=== PATIENT | male | born 1960 | race Hispanic/Latino ===

== ENCOUNTER 2019-03-30 16:03 | Inpatient (IN) | payer BC ==
[~2019-03-30] VITALS: Ht 167.6 cm; Wt 112.0 kg
[2019-03-30] MEDS ORDERED: CLINDAMYCIN PHOS 900MG/ 50ML 50 ML IV STA (16:22)
[2019-03-30] MEDS ORDERED: CLONIDINE HCL 0.1 MG TAB PO ONE (16:30)
--- NOTE | 2019-03-30 17:10 | Diagnostic Imaging Report ---
FOOT LEFT COMPLETE - 3 views HISTORY: Pain. Cellulitis. Foreign body. COMPARISON: None available. FINDINGS: Bones: No acute displaced fracture. Osseous alignment is within normal limits. Small plantar calcaneal enthesophyte. Joints: The joint spaces are well-maintained. Soft tissues: Soft tissue swelling of the plantar aspect of the hindfoot. No radiopaque foreign body. Vascular calcifications. IMPRESSION: Soft tissue swelling of the plantar aspect of the hindfoot. No radiopaque foreign body. Signed by: Dr. Shalonda Sims M.D. on 03/30/2019 5:08 PM
[2019-03-30 17:16] LABS: BASOPHILS # (AUTO) 0.1 (0.0-0.1); BASOPHILS % 0.6 % (0.0-1.0); EOSINOPHILS # (AUTO) 0.4 (0.0-0.4); EOSINOPHILS % 3.7 % (0.0-6.0); HEMATOCRIT 41.1 % (38.2-49.6); HEMOGLOBIN 14.7 g/dL (14.0-18.0); LYMPHOCYTES # (AUTO) 1.8 (1.0-3.2); LYMPHOCYTES % 15.3 % (18.0-39.1); MEAN CORPUSCULAR HEMOGLOBIN 31.1 pg (28-32); MEAN CORPUSCULAR HGB CONC 35.8 g/dL (31-35); MEAN CORPUSCULAR VOLUME 87.1 fL (81-99); MONOCYTES % 8.2 % (4.4-11.3); NEUTROPHILS # (AUTO) 8.4 (2.1-6.9); NEUTROPHILS % 71.6 % (38.7-80.0); PLATELET COUNT 330 x10e3/uL (140-360); RED BLOOD COUNT 4.72 x10e6/uL (4.3-5.7); RED CELL DISTRIBUTION WIDTH 11.5 % (11.7-14.4)
[2019-03-30 17:35] LABS: ALANINE AMINOTRANSFERASE 14 IU/L (0-55); ALBUMIN 3.8 g/dL (3.5-5.0); ALKALINE PHOSPHATASE 191 IU/L (40-150); ANION GAP 13.6 mmol/L (8-16); BLOOD UREA NITROGEN 11 mg/dL (7-26); BUN/CREATININE RATIO 11 (6-25); CALCIUM 9.4 mg/dL (8.4-10.2); CARBON DIOXIDE 26 mmol/L (22-29); CHLORIDE 98 mmol/L (98-107); CREATININE, SERUM 0.96 mg/dL (0.72-1.25); EST GLOMERULAR FILTRATION RATE > 60 ML/MIN (60-); GLUCOSE 310 mg/dL (74-118); POTASSIUM 3.6 mmol/L (3.5-5.1); SODIUM 134 mmol/L (136-145)
[2019-03-30] MEDS ORDERED: DEXTROSE 50% SYRINGE 50 ML IV PRN (18:30)
[2019-03-30] MEDS ORDERED: INSULIN REGULAR, HUMAN 100 UNIT/1 ML 3ML VIAL IV ONE (18:30)
--- OUTSIDE RECORDS SUMMARY | 2019-03-30 18:49 | XMS REPORT ---
[facility] Address Unknown Phone Unavailable Care Team Providers Care Advertiser Name Role Phone Kody BROWN Unavailable Unavailable Problems This patient has no known problems. Allergies, Adverse Reactions, Alerts This patient has no known allergies or adverse reactions. Medications This patient has no known medications. 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 Cellulitis. Foreign body. COMPARISON: None available. FINDINGS: Bones: No acute displaced fracture. Osseous alignment is within normal limits. Small plantar calcaneal enthesophyte. Joints: The joint spaces are well- maintained. Soft tissues: Soft tissue swelling of the plantar aspect of the hindfoot. No radiopaque foreign body. Vascular calcifications. IMPRESSION: Soft tissue swelling of the plantar aspect of the hindfoot. No radiopaque foreign body. Signed by: Dr. Shalonda Hilliard M.D. on 03/30/2019 5:08 PM Dictated By: MARGARET HILLIARD MD, MD 07 Transcribed By: LAVERN on 03/30/191707 COPY TO: SHAISTA HOOD NP
[2019-03-30] MEDS ORDERED: MORPHINE SULFATE INJ 4 MG/ML INJ 1ML IV PRN (21:15)
[2019-03-30] MEDS ORDERED: ONDANSETRON HCL INJ 2MG/ML 2ML 2 MG/ML VIAL IV PRN (21:15)
[2019-03-30] MEDS ORDERED: DIPHENHYDRAMINE HCL INJ 50 MG/ML VIAL IV PRN (21:15)
[2019-03-30] MEDS ORDERED: CLONIDINE HCL 0.1 MG TAB PO PRN (21:15)
[2019-03-30] MEDS ORDERED: ENALAPRILAT IV INJ 1.25 MG/ML VIAL IV PRN (21:15)
[2019-03-30] MEDS ORDERED: ACETAMINOPHEN 325 MG TAB PO PRN (21:15)
[2019-03-30] MEDS ORDERED: ZOLPIDEM TARTRATE 5 MG TAB PO PRN (21:15)
[2019-03-30] MEDS: MORPHINE SULFATE INJ 4 MG/ML INJ 1ML IV PRN (22:07)
[2019-03-30 22:08] VITALS: BP 150/78
[2019-03-30 22:14] VITALS: BP 150/78
[2019-03-30] MEDS: INSULIN REGULAR, HUMAN 100 UNIT/1 ML 3ML VIAL SQ SCH (22:23)
--- NOTE | 2019-03-30 22:30 | NUR ---
patient came from ER awake alert oriented, noted left foot swelling and red. pt complained of pain to the area to touch. small discharge noted and open to air. also noted dryness to right ankle, per pt its been there for a long time and it comes and go. pain med PRN given, will continue to monitor.
[2019-03-31] VITALS (10 sets, daily range): BP systolic 132–159; BP diastolic 59–84
[2019-03-31] MEDS: HYDROCODONE/APAP 7.5MG-325MG 1 EA TAB PO PRN ×2 (00:09→15:18)
[2019-03-31] MEDS: CLINDAMYCIN PHOS 900MG/ 50ML 50 ML IV SCH ×5 (00:17→23:25)
[2019-03-31] MEDS: MORPHINE SULFATE INJ 4 MG/ML INJ 1ML IV PRN (02:51)
[2019-03-31] MEDS: IBUPROFEN 200 MG TAB PO PRN ×2 (05:34→20:25)
[2019-03-31 06:31] LABS: CHOL/HDL RATIO 4.5 (3.9-4.7)
--- NOTE | 2019-03-31 06:55 | NUR ---
H&P cc: foot infection HPI; 59yoM, PCP none, developed infection of foot left- heel. Pt states no injury. Quit diabetic meds about 5 yrs ago. 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
[2019-03-31] MEDS ORDERED: ACETAMINOPHEN 325 MG TAB PO PRN (07:00)
[2019-03-31] MEDS ORDERED: SENNOSIDES 8.6 MG TAB PO PRN (07:00)
[2019-03-31] MEDS: INSULIN REGULAR, HUMAN 100 UNIT/1 ML 3ML VIAL SQ SCH ×4 (07:30→20:26)
[2019-03-31] MEDS: FAMOTIDINE 20 MG TAB PO SCH ×2 (07:54→16:46)
[2019-03-31] MEDS: VANCOMYCIN 1GM/NS 250 ML 250 ML IV SCH (07:54)
[2019-03-31] MEDS ORDERED: FAMOTIDINE 20 MG/2 ML VIAL IV SCH (09:00)
[2019-03-31] MEDS: INSULIN GLARGINE 100 UNITS/ML VIAL SQ SCH (09:00)
[2019-03-31] MEDS: PIPER-TAZ 3.375 GM 50 ML IV SCH ×3 (09:15→20:25)
--- NOTE | 2019-03-31 09:30 | NUR ---
Nutrition Screen Note RD Recommendation for Physician: -Continue current diet per MD. Plan of Care: RD following, monitoring for tolerance and adequacy. Education provided Nutrition reason for involvement: MD consult-obesity and DM Primary Diagnose(s): cellulitis of left foot, DM PMH: DM2, HTN, HLD Ht: 66 in Wt: 256 lb BMI: 41.3 kg/m2 IBW:[address] Assessment: (03/31): 59 YOM admitted for cellulitis with PMH listed above. The pt was seen resting in bed with his at his bedside. The pt denied poor appetite, N/V/C/D/chewing or swallowing issues as well as any food allergies. Pt and were educated on the DM diet and weight management tips and given educational handout. They had no other questions or concerns. Chart reviewed. Labs and meds reviewed. A1c-10.6, POC GM: 211. Will continue to monitor. Current Diet: 1800 ADA diet Malnutrition Evaluation 03/31 The patient does not meet criteria for a specified degree of malnutrition at this time. Will re-evaluate at follow-up as appropriate. Diet Education Needs Assessment: Diet education indicated, pt accepted. Diet Adequacy: (Meeting calorie needs, Meeting protein needs Learner(s): pt and Barriers: none Cultural/Language Modifications:none Readiness: acceptance Method: discussion, handout Topics: DM Diet- food label, meal planning, food logging, foods recommended and not recommended, carb and protein together, hyperglycemia tips, checking sugars, grocery shopping, healthy cooking tips, etc. Understanding/Compliance: verbalized understanding, anticipate good compliance Nutrition Care Level: low Signed: Jazzmine Mcintosh RD, LD
--- NOTE | 2019-03-31 10:16 | NUR ---
Consult called to Dr. Silverman
[2019-03-31] MEDS: ENOXAPARIN SOD INJ 40 MG/0.4 ML SYR SC SCH (16:47)
--- NOTE | 2019-03-31 18:33 | Consultation ---
DATE OF CONSULTATION: 03/31/2019 REASON FOR CONSULTATION: Consulted for left foot abscess. HISTORY OF PRESENT ILLNESS: This is a 59-year-old male, who presented to the ER for worsening swelling, pain, and drainage from his left foot. On admission, he denies any medical history, however, he does admit to pain and drainage from the left foot. He denies any nausea, fever, chills, or any constitutional symptoms. He states he does not seek a primary care doctor and has never been diagnosed with diabetes in the past. PAST MEDICAL HISTORY: As stated above. PAST SURGICAL HISTORY: Noncontributory. SOCIAL HISTORY: The patient denies any illicit drug abuse, alcohol abuse, or any tobacco abuse at this point. ALLERGIES: NO KNOWN DRUG ALLERGIES. MEDICATIONS: None. PHYSICAL EXAMINATION: VITAL SIGNS: Reviewed. Labs were reviewed, radiographs are reviewed, which are negative for any underlying soft tissue emphysema or cortical erosions consistent with osteomyelitis. GENERAL: The patient was seen lying in bed, in no acute distress. HEAD: Normocephalic. CHEST: Denies any chest pain. LUNGS: Denies any shortness of breath. ABDOMEN: Soft, nontender. EXTREMITIES: Left lower extremity, there is a full-thickness ulceration noted in the plantar aspect of the left foot. There is a palpable abscess noted to the plantar aspect of the left heel. Serosanguinous and pustular drainage is noted. Proximal streaking at this point is absent, but there is periwound erythema and edema. No pain on palpation. There is significant fungal infection noted to the plantar aspect of the left foot. ASSESSMENT: 1. Uncontrolled diabetes mellitus with peripheral neuropathy. 2. Left foot cellulitis with abscess. 3. Tinea pedis. PLAN: From Podiatry standpoint, deep wound cultures will be taken at bedside today. The patient's left foot will be dressed in a narrative form, packing with Betadine, wet-to-dry dressing. MRI of the left foot will be ordered for surgical planning. The patient will require incision and drainage of the abscess, however, prior to surgery I will request a medical and cardiac clearance due to the fact that the patient has not been evaluated by a medical doctor recently. Podiatry will continue to follow. Thank you again for including in the care of this patient. I would like to thank Dr. Owens for the consultation. LUIS Purdy /[id number]
[2019-03-31] MEDS: ATORVASTATIN 40 MG TAB PO SCH (20:25)
[2019-03-31] MEDS ORDERED: ZOLPIDEM TARTRATE 5 MG TAB PO PRN (21:00)
[2019-04-01] VITALS (11 sets, daily range): BP systolic 129–158; BP diastolic 71–98
[2019-04-01] MEDS: PIPER-TAZ 3.375 GM 50 ML IV SCH ×4 (01:13→20:22)
[2019-04-01] MEDS: CLINDAMYCIN PHOS 900MG/ 50ML 50 ML IV SCH ×3 (04:38→17:20)
--- NOTE | 2019-04-01 06:41 | NUR ---
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
[2019-04-01 07:05] LABS: BASOPHILS # (AUTO) 0.1 (0.0-0.1); BASOPHILS % 0.7 % (0.0-1.0); EOSINOPHILS # (AUTO) 0.7 (0.0-0.4); EOSINOPHILS % 6.5 % (0.0-6.0); HEMATOCRIT 39.4 % (38.2-49.6); HEMOGLOBIN 13.8 g/dL (14.0-18.0); LYMPHOCYTES # (AUTO) 1.9 (1.0-3.2); LYMPHOCYTES % 18.7 % (18.0-39.1); MEAN CORPUSCULAR HEMOGLOBIN 30.9 pg (28-32); MEAN CORPUSCULAR VOLUME 88.1 fL (81-99); MONOCYTES % 9.7 % (4.4-11.3); NEUTROPHILS # (AUTO) 6.4 (2.1-6.9); NEUTROPHILS % 63.8 % (38.7-80.0); PLATELET COUNT 301 x10e3/uL (140-360); RED BLOOD COUNT 4.47 x10e6/uL (4.3-5.7); RED CELL DISTRIBUTION WIDTH 11.5 % (11.7-14.4)
[2019-04-01 07:23] LABS: ANION GAP 12.3 mmol/L (8-16); BLOOD UREA NITROGEN 12 mg/dL (7-26); BUN/CREATININE RATIO 16 (6-25); CALCIUM 9.1 mg/dL (8.4-10.2); CARBON DIOXIDE 27 mmol/L (22-29); CHLORIDE 99 mmol/L (98-107); CREATININE, SERUM 0.74 mg/dL (0.72-1.25); EST GLOMERULAR FILTRATION RATE > 60 ML/MIN (60-); GLUCOSE 217 mg/dL (74-118); POTASSIUM 4.3 mmol/L (3.5-5.1); SODIUM 134 mmol/L (136-145)
[2019-04-01] MEDS: INSULIN REGULAR, HUMAN 100 UNIT/1 ML 3ML VIAL SQ SCH ×4 (08:17→20:26)
[2019-04-01] MEDS: FAMOTIDINE 20 MG TAB PO SCH ×2 (08:19→16:43)
[2019-04-01] MEDS: VANCOMYCIN 1GM/NS 250 ML 250 ML IV SCH (08:19)
[2019-04-01] MEDS: INSULIN GLARGINE 100 UNITS/ML VIAL SQ SCH (08:20)
--- NOTE | 2019-04-01 08:35 | Diagnostic Imaging Report ---
MRI of the left foot without contrast. History: Cellulitis. Foot pain. Decreased range of motion. Heel pain Technique: Multiplanar multisequence MRI of the foot without contrast Comparison: March 30, 2019 Findings: Skin thickening with ulceration and abnormal soft tissue edema at the plantar aspect of the foot at the level of the mid calcaneus. No well-formed drainable fluid collection/abscess is seen. The findings are most consistent with cellulitis. The underlying bone is uninvolved. No acute fracture, dislocation or evidence of avascular necrosis. Scattered degenerative arthrosis. Posterior and inferior calcaneal bone spurs. No ligamentous or tendon tear. The visualized muscles are normal in size and morphology. The visualized neurovascular bundles are intact. Impression: Skin thickening with ulceration and abnormal soft tissue edema at the plantar aspect of the foot at the level of the mid calcaneus. No well-formed drainable fluid collection/abscess is seen. The findings are most consistent with cellulitis. The underlying bone is uninvolved. Signed by: Dr. Edson Cole M.D. on 04/01/2019 8:32 AM
[2019-04-01] MEDS ORDERED: ONDANSETRON HCL 4 MG ORAL DISINTEGRATING TAB PO PRN (11:30)
--- NOTE | 2019-04-01 13:10 | NUR ---
Visit made by the Spiritual Care Department Pastoral Visitor, Rosalia Norris. PV provided pastoral presence, prayer, hospitality, and supportive listening. Pastoral Visitor informed pt/family of the scope of [employer] and availability. JUAN PAREDES Electronic Equipment Installer Spiritual Care Department O: [phone] Pager: [phone] ([phone] number calling from)
--- NOTE | 2019-04-01 13:48 | Progress Note ---
DATE: 04/01/2019 SUBJECTIVE: The patient was seen at bedside today, in no acute distress. Dressings are clean, dry, and intact to the left foot. He denies any overnight constitutional symptoms. MRI was reviewed, which is consistent for an abscess collection at the plantar aspect of the left heel, however, there is no underlying osteomyelitis. ASSESSMENT: 1. Abscess of left foot. 2. Uncontrolled diabetes mellitus with peripheral neuropathy. 3. Left foot cellulitis. PLAN: From Podiatry standpoint, we will plan for surgery on consisting of an incision and drainage of abscess of the left foot. I am awaiting medical and cardiac clearance for the patient prior to surgery. At this point, Podiatry will continue to follow. Thank you again for including me in the care of this patient. Kerline Silverman DPM [facility] /[id number]
--- NOTE | 2019-04-01 14:30 | NUR ---
WOUND CARE CONSULT FOR 59 YO MALE HX OF DIABETIES, CELLULITIS FERNY 22 PATIENT ON CONSERVATIVE PUP STATUS AND INTERVENTIONS AND VISCO MATTRESS LABS: WBC-11.77 HGB_ 14.7 GLUCOSE-310 VQGA6F-30.6 SKIN ASSESSMENT COMPLETE PATIENT PRESENTS WITH LEFT FOOT PLANTAR SURFACE HEEL ULCERATION COVERED WITH CALLUS DRAINING BROWNISH EXUDATE WITH SLIGHT SMELL CULTURES DONE PATIENT ON ANTIBIOTICS AND PLANNED DEBRIDEMENT FOR Sunday04/02/2019 RECOMMENDATIONS: NURSING TO CONTINUE TO MAINTAIN CONSERVATIVE PUP STATUS AND INTERVENTIONS AND VISCO MATTRESS NURSING TO CONTINUE TO ASSIST PATIENT OUT OF BED FOR MEALS AND MUCH TOLERATED NURSING TO CONTINUE TO ASSIST PATIENT NEEDED WITH MEALS AND NUTRITIONAL SUPPLEMENTS TO ENSURE PROPER REQUIREMENTS FOR HEALING NURSING TO CONTINUE TO OFFLOAD FEET AND HEELS NEEDED WITH PILLOW SUSPENSION WHEN IN BED NURSING TO CLEAN LEFT HEEL ULCERATION WITH NORMAL SALINE DAILY AND APPLY BETADINE DAMP 4X4 AND WRAP WITH KERLIX [place] Addendum: 04/01/19 at 1440 by Dominic Casey RN Amended: Links added.
[2019-04-01] MEDS: HYDROCODONE/APAP 7.5MG-325MG 1 EA TAB PO PRN ×2 (15:06→22:00)
--- NOTE | 2019-04-01 16:29 | NUR ---
DR GARCIA PLANNING ON I/D OF LEFT FOOT SUNDAY. WANTS CARDIO CLEARANCE. PER DR SAENZ, OK FOR PROCEDURE. ORDERED DOPPLER OF FOOT FOR POSSIBLE FUTURE ANGIOGRAM. PT STABLE
[2019-04-01] MEDS: ENOXAPARIN SOD INJ 40 MG/0.4 ML SYR SC SCH (16:43)
[2019-04-01] MEDS: MORPHINE SULFATE INJ 4 MG/ML INJ 1ML IV PRN (19:57)
[2019-04-01] MEDS: ATORVASTATIN 40 MG TAB PO SCH (20:22)
[2019-04-02] VITALS (8 sets, daily range): BP systolic 120–124; BP diastolic 67–89
--- NOTE | 2019-04-02 00:29 | Consultation ---
DATE OF CONSULTATION: 04/01/2019 Cardiology Consult Note REASON FOR CONSULT: Left lower extremity ulcer and wound. CHIEF COMPLAINT: Left heel pain. HISTORY OF PRESENT ILLNESS: A 59-year-old man with history of hypertension, hyperlipidemia, prior smoker, quit about nine years ago, diabetes, who had nonhealing diabetic ulcer of the left heel, admitted for I and D . No prior history of PAD or intervention. No history of sudden cardiovascular disease otherwise . No strokes. Currently, denies any shortness of breath or chest pain. No complaints of left heel ulcer. REVIEW OF SYSTEMS: As per HPI, otherwise negative. PAST MEDICAL HISTORY: As per HPI. SOCIAL HISTORY: Does not smoke, drink, or abuse drugs. FAMILY HISTORY: Noncontributory. OUTPATIENT MEDICATIONS: Reviewed. ALLERGIES: NO KNOWN DRUG ALLERGIES. OBJECTIVE: VITAL SIGNS: Temperature afebrile, pulse 73, respiratory rate 20, blood pressure 129/87, saturating 97% on room air. GENERAL: Middle-aged male in no acute distress. CARDIOVASCULAR: Regular rate and rhythm. No murmurs, rubs, or gallops. LUNGS: Clear to auscultation bilaterally. ABDOMEN: Soft, nontender, nondistended. NEURO AND PSYCH: Alert and oriented to person, place, and time. Normal affect. EXTREMITIES: Left lower extremities with heel dressing in place. Palpable dorsalis pedis pulse. Bilateral lower extremities. Posterior tibial pulses not palpable on the left. INPATIENT MEDICATIONS: Reviewed. LABORATORY DATA: Reviewed. ASSESSMENT: 1. Nonhealing left heel diabetic foot ulcer. 2. Preoperative evaluation. PLAN: The patient is low risk for podiatry surgery, plan for from cardiovascular standpoint, no further testing required. . Thank you for this consult. We will continue to follow. MD ALONSO Del Rio/SANDIPL /[id number]
[2019-04-02] MEDS: MORPHINE SULFATE INJ 4 MG/ML INJ 1ML IV PRN ×2 (02:00→15:31)
[2019-04-02] MEDS: PIPER-TAZ 3.375 GM 50 ML IV SCH ×2 (03:15→20:24)
[2019-04-02] MEDS: CLINDAMYCIN PHOS 900MG/ 50ML 50 ML IV SCH ×3 (05:29→13:26)
[2019-04-02] MEDS: HYDROCODONE/APAP 7.5MG-325MG 1 EA TAB PO PRN ×2 (06:00→17:59)
--- NOTE | 2019-04-02 07:25 | NUR ---
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 sx pending. Staph infection of foot. vanco trough. Paolo Martin MD, PhD.
[2019-04-02] MEDS: FAMOTIDINE 20 MG TAB PO SCH ×2 (07:41→17:47)
[2019-04-02] MEDS: INSULIN REGULAR, HUMAN 100 UNIT/1 ML 3ML VIAL SQ SCH ×4 (07:42→20:25)
[2019-04-02] MEDS: VANCOMYCIN 1GM/NS 250 ML 250 ML IV SCH (09:34)
[2019-04-02] MEDS: INSULIN GLARGINE 100 UNITS/ML VIAL SQ SCH (09:35)
[2019-04-02] MEDS: IBUPROFEN 200 MG TAB PO PRN ×2 (10:27→21:47)
[2019-04-02] MEDS ORDERED: PIPER-TAZ 3.375 GM 50 ML IV SCH (12:00)
[2019-04-02] MEDS ORDERED: SODIUM CHLORIDE 0.9% 250ML 250 ML ONE (12:03)
[2019-04-02] MEDS: ENOXAPARIN SOD INJ 40 MG/0.4 ML SYR SC SCH (17:47)
[2019-04-02] MEDS: ATORVASTATIN 40 MG TAB PO SCH (20:24)
[2019-04-02] MEDS: VANCOMYCIN HCL 1.25 GM in SODIUM CHLORIDE 0.9% 250ML 250 ML IV SCH (21:36)
--- NOTE | 2019-04-02 21:58 | Consultation ---
DATE OF CONSULTATION: 04/02/2019 Infectious Disease Consultation I would like to thank Dr. Paolo Owens for this interesting consult. HISTORY OF PRESENT ILLNESS: This is a 59-year-old, very pleasant male with no significant past medical history. The patient has a wound on the left heel area. 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 In the ER, he was found to have elevated blood glucose and he was diagnosed with diabetes. The sensations in the feet are questionable. The patient does not smoke and does not drink alcohol. For the concerns of diabetic foot infection, our service was asked to evaluate it and give further recommendations. PAST MEDICAL HISTORY: Newly onset of diabetes mellitus, obesity. PAST SURGICAL HISTORY: Not significant. MEDICATIONS: Reviewed. ALLERGIES: NO KNOWN DRUG ALLERGIES. FAMILY HISTORY: Noncontributory. 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 He does not smoke. Denies alcohol. No history of sexually transmitted disease. Lives at home with family. REVIEW OF SYSTEMS: A 14-point review of systems were obtained and all were negative except what was mentioned in the HPI. PHYSICAL EXAMINATION: VITAL SIGNS: Temperature 98.2, respiratory rate is 18, heart rate 68, blood pressure 184/85. GENERAL: Awake and alert. HEENT: Atraumatic, normocephalic. Chest: Clear to auscultation bilaterally. HEART: S1 and S2 are normal. ABDOMEN: Soft, nontender. EXTREMITIES: Left foot area has heel open wound with purulent drainage, periwound erythema, and tender to palpation of the heel. LABORATORY DATA: WBC 10.01, hemoglobin 13.8, hematocrit 39.4, platelet count is 301. Chemistry, 229. Microbiology, wound culture shows Staphylococcus aureus, susceptibility pending. IMAGING DATA: X-ray of the foot shows soft tissue swelling of the plantar aspect of the hindfoot. No radiopaque foreign body. MRI of the foot shows skin thickening with ulceration and has normal soft tissue edema and the plantar aspect of the foot at the level of mid calcaneus. No well formed drainable fluid collection or abscess is seen. The findings are more consistent with cellulitis. The underlying bone is uninvolved. ASSESSMENT: 1. This is a 59-year-old, very pleasant male with past medical history of newly onset diabetes mellitus, presents with diabetic foot infection, cellulitis, infected wound due to Staphylococcus aureus. 2. Concerns for abscess. 3. No osteomyelitis per MRI. PLAN: 1. We will check blood cultures x2. 2. We will follow wound cultures. 3. The patient is planned for incision and drainage per Podiatry tomorrow. We will follow intraoperative cultures. 4. We will use Zosyn 3.375 q. 8 hours. 5. Continue with vancomycin 1250 mg q. 12 hours. 6. Vancomycin trough will be checked with third dose. 7. Vancomycin trough will be maintained between 15 to 20. 8. CMP daily to monitor renal function. 9. Further recommendations to follow. Thank you for letting me to participate in the care of your patient. MD PARIS Molina/SANDIPL /[id number]
--- NOTE | 2019-04-02 22:07 | Progress Note ---
DATE: 04/02/2019 Cardiology Progress Note SUBJECTIVE: No major events overnight, having some heel pain. OBJECTIVE: VITAL SIGNS: Temperature afebrile, pulse 66, respiratory rate 20, blood pressure 121/72, saturating 98% on nasal cannula. GENERAL: A well-developed, well-nourished, in no acute distress. CARDIOVASCULAR: Regular rate and rhythm. No murmurs, rubs, or gallops. LUNGS: Clear to auscultation bilaterally. ABDOMEN: Soft, nontender, nondistended. NEURO AND PSYCH: Alert and oriented to person, place, and time. Normal affect. INPATIENT MEDICATIONS: Reviewed. LABORATORY DATA: Reviewed. TELEMETRY DATA: Reviewed, shows normal sinus rhythm. Peripheral arterial Doppler reviewed has severe stenosis in the left posterior tibial artery. ASSESSMENT AND PLAN: 1. Nonhealing left heel ulcer. 2. Peripheral arterial disease. PLAN: The patient will undergo I and D by Podiatry tomorrow, has severe stenosis of his left posterior tibial artery. His wound healing will benefit from peripheral intervention at an increased blood supply to the aneurysm of left heel. We will plan for peripheral angiography and intervention likely Sunday. Thank you for this consult. We will continue to follow. MD ALONSO Del Rio/LEA /[id number]
--- NOTE | 2019-04-02 22:20 | NUR ---
patient awake alert, just had Motrin PRN for the the left foot. he had some snacks just now, tolerated well. IV antibiotic is running at this time, and daughter on bed side. he is aware that he will be fasting after midnight and will sign consent for the procedure in the morning. will continue to monitor.
[2019-04-03] VITALS (11 sets, daily range): BP systolic 98–145; BP diastolic 57–85
[2019-04-03] MEDS: MORPHINE SULFATE INJ 4 MG/ML INJ 1ML IV PRN ×3 (04:18→22:01)
[2019-04-03] MEDS: PIPER-TAZ 3.375 GM 50 ML IV SCH ×3 (04:18→20:11)
[2019-04-03 05:30] LABS: BASOPHILS # (AUTO) 0.1 (0.0-0.1); BASOPHILS % 0.8 % (0.0-1.0); EOSINOPHILS # (AUTO) 0.7 (0.0-0.4); EOSINOPHILS % 8.1 % (0.0-6.0); HEMATOCRIT 39.5 % (38.2-49.6); HEMOGLOBIN 13.5 g/dL (14.0-18.0); LYMPHOCYTES # (AUTO) 1.8 (1.0-3.2); LYMPHOCYTES % 20.5 % (18.0-39.1); MEAN CORPUSCULAR HEMOGLOBIN 30.4 pg (28-32); MEAN CORPUSCULAR HGB CONC 34.2 g/dL (31-35); MONOCYTES # (AUTO) 0.7 (0.2-0.8); MONOCYTES % 7.7 % (4.4-11.3); NEUTROPHILS # (AUTO) 5.6 (2.1-6.9); NEUTROPHILS % 62.5 % (38.7-80.0); PLATELET COUNT 310 x10e3/uL (140-360); RED BLOOD COUNT 4.44 x10e6/uL (4.3-5.7); RED CELL DISTRIBUTION WIDTH 11.3 % (11.7-14.4)
[2019-04-03 05:45] LABS: INR 0.99; PROTHROMBIN TIME 13.7 seconds (11.9-14.5)
[2019-04-03 05:46] LABS: PARTIAL THROMBOPLASTIN TIME 31.6 seconds (23.8-35.5)
[2019-04-03 05:54] LABS: ANION GAP 11.1 mmol/L (8-16); BLOOD UREA NITROGEN 15 mg/dL (7-26); BUN/CREATININE RATIO 22 (6-25); CARBON DIOXIDE 27 mmol/L (22-29); CHLORIDE 100 mmol/L (98-107); CREATININE, SERUM 0.69 mg/dL (0.72-1.25); EST GLOMERULAR FILTRATION RATE > 60 ML/MIN (60-); GLUCOSE 168 mg/dL (74-118); POTASSIUM 4.1 mmol/L (3.5-5.1); SODIUM 134 mmol/L (136-145)
--- NOTE | 2019-04-03 06:48 | NUR ---
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 sx pending. Staph infection of foot. vanco trough. 04/03 sx pending; Paolo Martin MD, PhD.
[2019-04-03] MEDS: INSULIN REGULAR, HUMAN 100 UNIT/1 ML 3ML VIAL SQ SCH ×4 (07:30→20:11)
[2019-04-03] MEDS: FAMOTIDINE 20 MG TAB PO SCH ×2 (07:30→16:29)
[2019-04-03] MEDS: VANCOMYCIN HCL 1.25 GM in SODIUM CHLORIDE 0.9% 250ML 250 ML IV SCH ×2 (09:46→21:56)
--- NOTE | 2019-04-03 12:30 | NUR ---
Patient went to OR at this time
--- NOTE | 2019-04-03 12:45 | NUR ---
Patient going to OR will send Zosyn dose to OR.
[2019-04-03] MEDS ORDERED: BACITRACIN 50,000 UNIT VIAL ONE (12:55)
[2019-04-03] MEDS ORDERED: BUPIVACAINE HCL 0.5% INJ 30 ML VIAL INJ ONE (12:55)
[2019-04-03] MEDS ORDERED: MUPIROCIN 2% OINT 22 GM TUBE ONE (12:55)
[2019-04-03] MEDS ORDERED: HYDROMORPHONE 1MG/1ML INJ ONE (14:13)
[2019-04-03] MEDS ORDERED: MIDAZOLAM HCL 2 MG/2 ML VIAL ONE (14:25)
[2019-04-03] MEDS ORDERED: FENTANYL CITRATE/PF 100MCG/2 ML INJ ONE (14:25)
--- NOTE | 2019-04-03 15:00 | NUR ---
Received patient from the PACU patient is awake, alert and oriented x4, verbalizing needs, he is s/p incision and drainage to the left heel with bone biopsy, cultures of wound. has dressing to left heel, covered and wrapped with MONICA bandage no drainage note. Bed in low position break on placed back on telemetry. Belongings and call light within reach will continue to monitor.
--- NOTE | 2019-04-03 16:16 | Diagnostic Imaging Report ---
Exam: Left heel 2 views Comparison: Left foot MR, March 31, 2019 Clinical history: Status post surgery Findings: Dressing material is noted at the plantar aspect of the left posterior foot. There is no evidence of acute fracture or malalignment. No radiographic evidence of osteomyelitis. Signed by: Dr. Miguel Banks MD on 04/03/2019 4:13 PM
--- NOTE | 2019-04-03 16:17 | Diagnostic Imaging Report ---
Exam: Left foot 2 views Clinical History: Status post surgery Findings: There is no evidence of acute fracture or malalignment. The articular joints are well-preserved. Soft tissue defect is noted at the plantar surface of the posterior foot. Dressing material is also noted in the posterior lateral foot consistent with recent surgery. There is no evidence of acute fracture or malalignment. The articular joints are within normal limits. Impression: 1. Postoperative changes involving the left posterior foot without radiographic evidence of bony involvement. Signed by: Dr. Miguel Banks MD on 04/03/2019 4:15 PM
[2019-04-03] MEDS: INSULIN GLARGINE 100 UNITS/ML VIAL SQ SCH (16:29)
[2019-04-03] MEDS: ENOXAPARIN SOD INJ 40 MG/0.4 ML SYR SC SCH (18:10)
[2019-04-03] MEDS: HYDROCODONE/APAP 7.5MG-325MG 1 EA TAB PO PRN (18:22)
[2019-04-03] MEDS ORDERED: EPHEDRINE SULFATE INJ 50 MG/ML VIAL ONE (18:31)
[2019-04-03] MEDS ORDERED: PROPOFOL IV EMULSION 10 MG/ML 20 ML VIAL ONE (18:31)
[2019-04-03] MEDS ORDERED: ONDANSETRON HCL INJ 2MG/ML 2ML 2 MG/ML VIAL ONE (18:31)
[2019-04-03] MEDS ORDERED: LIDOCAINE HCL 2% LOCAL INJ 5 ML SDV VIAL INJ ONE (18:31)
[2019-04-03] MEDS ORDERED: SEVOFLURANE INHAL SOLN 250 ML PEN BTL ONE (18:31)
--- NOTE | 2019-04-03 19:55 | NUR ---
patient is awake alert oriented, no distress noted, denied any discomfort. left foot dressing intact. he is aware about peripheral angiography in the morning and stated that dr Francis came and talked to him today.
[2019-04-03] MEDS: ATORVASTATIN 40 MG TAB PO SCH (20:11)
--- NOTE | 2019-04-03 21:33 | Progress Note ---
DATE: 04/03/2019 Cardiology Progress Note SUBJECTIVE: Had I and D of left heel done today, doing well. No complaints. OBJECTIVE: VITAL SIGNS: Temperature afebrile, pulse 72, respiratory rate 15, blood pressure 127/75, saturating 100% on nasal cannula. GENERAL: Middle-aged man, well-developed, well-nourished, no acute distress. CARDIOVASCULAR: Regular rate and rhythm. No murmurs, rubs, or gallops. LUNGS: Clear to auscultation bilaterally. ABDOMEN: Soft, nontender, nondistended, obese. No masses. NEURO AND PSYCH: Alert and oriented to person, place and time. Normal affect. Left lower extremity dressing in place on the left heel, left posterior tibial pulses not palpable. No edema, no varicosities. INPATIENT MEDICATIONS: Reviewed. LABORATORY DATA: Reviewed. TELEMETRY DATA: The patient is not on telemetry. ASSESSMENT: 1. Peripheral arterial disease. 2. Left heel ulcer. PLAN: Plan for peripheral angiography and intervention tomorrow morning. Continue current cardiovascular medications otherwise. MD ALONSO Del Rio/SANDIPL /[id number]
[2019-04-03] MEDS: IBUPROFEN 200 MG TAB PO PRN (23:37)
[2019-04-04] VITALS (11 sets, daily range): BP systolic 134–165; BP diastolic 75–93
--- NOTE | 2019-04-04 02:49 | Operative Report ---
DATE OF PROCEDURE: 04/03/2019 SURGEON: Kerline Silverman DPM MILL OILER: None. PREOPERATIVE DIAGNOSES: 1. Left foot abscess. 2. Possible osteomyelitis, left foot. POSTOPERATIVE DIAGNOSES: 1. Left foot abscess. 2. Possible osteomyelitis, left foot. PROCEDURES: 1. Left foot incision and drainage of the abscess. 2. Bone biopsy, left calcaneus. HEMOSTASIS: None. INJECTABLES: 10 mL of 0.5% Marcaine plain. DESCRIPTION OF PROCEDURE: After informed consent was obtained, the patient was brought to the operating room and placed on the operating table in the supine position. General anesthesia was obtained. Left lower extremity was scrubbed, prepped, and draped in the usual aseptic manner. Attention was then directed to the plantar aspect of the left heel where the abscess was noted. At this time, utilizing sharp dissection technique, the abscess was drained. Approximately 10 mL of pustular drainage was expressed from the heel. At this time, it was noted that the ulceration site did extend to the bone. Therefore, an intraoperative decision to take a bone culture was made. Bone culture was sent to Pathology for culture and specimen. Next, the deep wound cultures were performed and sent to micro for aerobic, anaerobic, Gram staining and AFB. The wound was then thoroughly irrigated in a pulse lavage fashion utilizing 3 L of normal sterile saline with 20 mL of Betadine. Next, the left foot was anesthetized utilizing 10 mL of 0.5% Marcaine plain. The left foot was then placed in a sterile dressing consisting of Iodoform packing, 4 x 4's soaked in Betadine, 4 x 4's, Kerlix, Shyam wrap. The patient tolerated the procedure and anesthesia well. The patient was transferred back to the recovery room with vital signs stable and neurovascular status intact to preop status. Kerline Silverman DPM [facility]/MODL /[id number]
[2019-04-04] MEDS: MORPHINE SULFATE INJ 4 MG/ML INJ 1ML IV PRN ×3 (04:16→21:48)
[2019-04-04] MEDS: PIPER-TAZ 3.375 GM 50 ML IV SCH ×3 (04:16→20:43)
[2019-04-04] MEDS: INSULIN REGULAR, HUMAN 100 UNIT/1 ML 3ML VIAL SQ SCH ×4 (07:30→20:45)
[2019-04-04] MEDS: FAMOTIDINE 20 MG TAB PO SCH ×2 (07:30→17:23)
[2019-04-04] MEDS ORDERED: HEPARIN SOD (PORCINE) 1000 UNIT/ML 30ML ONE (08:36)
[2019-04-04] MEDS ORDERED: LIDOCAINE HCL 2% LOCAL 20 ML VIAL ONE (08:37)
[2019-04-04] MEDS ORDERED: FENTANYL CITRATE/PF 100MCG/2 ML INJ ONE ×2 (08:37→09:42)
[2019-04-04] MEDS ORDERED: MIDAZOLAM HCL 2 MG/2 ML VIAL ONE ×2 (08:37→09:27)
[2019-04-04] MEDS ORDERED: NITROGLYCERIN/D5W 200 MCG/ML 250 ML ONE (08:38)
[2019-04-04] MEDS ORDERED: SODIUM CHLORIDE 0.9% 1000ML 1,000 ML ONE ×2 (08:38→09:24)
[2019-04-04] MEDS ORDERED: IOPAMIDOL 300MG/ML 100 ML INFUS..BTL IV ONE (08:38)
[2019-04-04] MEDS ORDERED: HEPARIN SOD/SOD CHLORIDE 2,000 ML ONE (08:38)
[2019-04-04] MEDS ORDERED: VERAPAMIL HCL 2.5 MG/ML 2 ML VIAL ONE (09:23)
--- NOTE | 2019-04-04 09:52 | NUR ---
IM- progress note O/N see below ROS: no f/c/s/N/V/D/OG/cp/sob/back pain/confusion/focal limb weakness/vision changes v/s; revd PE tired appearing anicteric ns1s2 mod bs soft nt nd left foot plantar surface near heel with open wound, small, mild induration, surrounding erythema and warmth skin dry flat affect a&ox3; sanchez labs/med revd A/P: Left heel/foot abscess- IV vanco/clinda/wound care; XR negative DFU- IV abx; zosyn/vanco Staph infection of foot- cont IV vanco DM2- hab1c/lipids; start low dose lantus HTN- home meds HLD- use statin Severe obesity- supervisor cd area consult BMI 41.3 Prop; lovenox; pepcid dispo: consult podiatry 04-01 check labs; f/u MRI 04/02 MRI no OM. sx pending. Staph infection of foot. vanco trough. 04/03 sx pending; 04/04 MSSA infected DFU; Paolo Martin MD, PhD.
[2019-04-04] MEDS ORDERED: ASPIRIN 325 MG TAB ONE (09:57)
[2019-04-04] MEDS ORDERED: CLOPIDOGREL BISULFATE 75 MG TAB ONE (09:57)
[2019-04-04] MEDS: VANCOMYCIN HCL 1.25 GM in SODIUM CHLORIDE 0.9% 250ML 250 ML IV SCH ×2 (10:32→22:40)
[2019-04-04] MEDS: INSULIN GLARGINE 100 UNITS/ML VIAL SQ SCH (12:11)
[2019-04-04] MEDS: HYDROCODONE/APAP 7.5MG-325MG 1 EA TAB PO PRN ×2 (12:15→17:14)
--- NOTE | 2019-04-04 17:03 | Progress Note ---
DATE: 04/04/2019 SUBJECTIVE: The patient was seen at bedside today, in no acute distress. Dressings are clean, dry, and intact to the left foot. He underwent angiogram with Dr. Francis today. It was successful. Clinically, no changes since previous examination. ASSESSMENT: 1. Status post 1-day incision and drainage of left foot abscess with bone culture. 2. Osteomyelitis and cellulitis, left foot with abscess. 3. Diabetes mellitus with peripheral neuropathy. PLAN: From Podiatry standpoint, leave the dressing clean, dry, and intact to the left foot. From Podiatry standpoint, he is okay to be discharged if okay with Infectious Disease. He is to follow up with me in clinic within 1 week of discharge. At this point, Podiatry will sign off. Please reconsult if services are required. Thank you again for including me in the care of this patient. Kerline Silverman DPM [facility]/LEA /[id number]
[2019-04-04] MEDS: ENOXAPARIN SOD INJ 40 MG/0.4 ML SYR SC SCH (17:23)
[2019-04-04] MEDS: ATORVASTATIN 40 MG TAB PO SCH (20:43)
[2019-04-04] MEDS: IBUPROFEN 200 MG TAB PO PRN (20:52)
--- NOTE | 2019-04-04 23:19 | Progress Note ---
DATE: 04/04/2019 Cardiology Progress Note SUBJECTIVE: Had peripheral angiogram and intervention to the left posterior tibial artery. Doing well. OBJECTIVE: VITAL SIGNS: Temperature afebrile, pulse 72, respiratory rate 19, blood pressure 134/75, saturating 98% on room air. GENERAL: Middle-aged man, in no acute distress. CARDIOVASCULAR: Regular rate and rhythm. No murmurs, rubs, or gallops. LUNGS: Clear to auscultation bilaterally. ABDOMEN: Soft, nontender, nondistended. Obese. No masses. NEURO AND PSYCH: Alert, oriented to person, place, and time. Normal affect. INPATIENT MEDICATIONS: Reviewed. LABORATORY DATA: Reviewed. TELEMETRY DATA: The patient is on telemetry. ASSESSMENT: 1. Peripheral arterial disease, status post BILLPOSTER of the left posterior tibial artery. 2. Diabetic foot ulcer of left heel. PLAN: Continue aspirin and Plavix. The patient is okay to be discharged from cardiovascular standpoint with outpatient followup. MD ALONSO Del Rio/SANDIPL /[id number]
[2019-04-05] VITALS (9 sets, daily range): BP systolic 128–158; BP diastolic 74–84
[2019-04-05] MEDS: PIPER-TAZ 3.375 GM 50 ML IV SCH ×2 (04:34→11:53)
[2019-04-05] MEDS: HYDROCODONE/APAP 7.5MG-325MG 1 EA TAB PO PRN ×3 (04:41→21:53)
--- NOTE | 2019-04-05 05:44 | NUR ---
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 sx pending. Staph infection of foot. vanco trough. 04/03 sx pending; 04/04 MSSA infected DFU; 04/05 continue IV abx; continue LWC Paolo Martin MD, PhD.
[2019-04-05 05:49] LABS: BASOPHILS % 0.4 % (0.0-1.0); EOSINOPHILS # (AUTO) 0.5 (0.0-0.4); EOSINOPHILS % 5.2 % (0.0-6.0); HEMATOCRIT 37.9 % (38.2-49.6); LYMPHOCYTES # (AUTO) 1.9 (1.0-3.2); LYMPHOCYTES % 19.5 % (18.0-39.1); MEAN CORPUSCULAR HEMOGLOBIN 30.7 pg (28-32); MEAN CORPUSCULAR HGB CONC 34.3 g/dL (31-35); MEAN CORPUSCULAR VOLUME 89.4 fL (81-99); MONOCYTES # (AUTO) 0.9 (0.2-0.8); MONOCYTES % 9.3 % (4.4-11.3); NEUTROPHILS # (AUTO) 6.4 (2.1-6.9); PLATELET COUNT 294 x10e3/uL (140-360); RED BLOOD COUNT 4.24 x10e6/uL (4.3-5.7); RED CELL DISTRIBUTION WIDTH 11.3 % (11.7-14.4)
[2019-04-05 06:10] LABS: BLOOD UREA NITROGEN 10 mg/dL (7-26); BUN/CREATININE RATIO 15 (6-25); CALCIUM 8.9 mg/dL (8.4-10.2); CARBON DIOXIDE 28 mmol/L (22-29); CHLORIDE 102 mmol/L (98-107); CREATININE, SERUM 0.67 mg/dL (0.72-1.25); EST GLOMERULAR FILTRATION RATE > 60 ML/MIN (60-); GLUCOSE 134 mg/dL (74-118); SODIUM 136 mmol/L (136-145)
[2019-04-05] MEDS: INSULIN REGULAR, HUMAN 100 UNIT/1 ML 3ML VIAL SQ SCH ×4 (07:11→21:52)
[2019-04-05] MEDS: CLOPIDOGREL BISULFATE 75 MG TAB PO SCH (08:42)
[2019-04-05] MEDS: FAMOTIDINE 20 MG TAB PO SCH ×2 (08:42→17:47)
[2019-04-05] MEDS: ASPIRIN 81 MG ENTERIC COATED PO SCH (08:42)
[2019-04-05] MEDS: INSULIN GLARGINE 100 UNITS/ML VIAL SQ SCH (08:43)
[2019-04-05] MEDS: VANCOMYCIN HCL 1.25 GM in SODIUM CHLORIDE 0.9% 250ML 250 ML IV SCH (10:25)
[2019-04-05] MEDS: MORPHINE SULFATE INJ 4 MG/ML INJ 1ML IV PRN (13:47)
[2019-04-05] MEDS ORDERED: LISINOPRIL 10 MG TAB PO ONE (14:45)
[2019-04-05] MEDS ORDERED: LISINOPRIL 10 MG TAB PO NR (15:00)
[2019-04-05] MEDS ORDERED: ERTAPENEM 1GM/NS 100ML 100 ML IV SCH (16:30)
--- NOTE | 2019-04-05 17:32 | Progress Note ---
DATE: 04/05/2019 Cardiology Progress Note SUBJECTIVE: The patient denies chest pain or shortness of breath. OBJECTIVE: VITAL SIGNS: Temperature 97.7 degrees, pulse 71, respiratory rate 16, blood pressure 155/80, and oxygen saturation 96% on room air. GENERAL: Awake, alert, no acute distress. LUNGS: Clear to auscultation bilaterally. No wheezes or crackles. CARDIOVASCULAR: Normal rate regular rhythm. No murmur. Normal S1 and S2. ABDOMEN: Soft and nontender. EXTREMITIES: No edema. NEURO: Nonfocal exam. CARDIAC MEDICATIONS: Plavix 75 mg p.o. daily, aspirin 81 mg p.o. daily, atorvastatin 40 mg p.o. at bedtime, and enoxaparin 40 mg subcutaneous daily. LABORATORY DATA: WBC 9.91, hemoglobin 13, hematocrit 37.9, and platelets 294. Sodium 136, potassium 4, chloride 102, CO2 28, BUN 10, and creatinine 0.67. TELEMETRY: Personally reviewed and interpreted, revealing normal sinus rhythm. IMPRESSION: 1. Peripheral arterial disease, status post PLASTIC PRESS OPERATOR of the left posterior tibial artery. 2. Diabetic ulcer of the left heel. 3. Hypertension. 4. Hyperlipidemia. RECOMMENDATIONS: Continue dual anti-platelet therapy. The patient's blood pressure is not well controlled. Renal function is acceptable. Start lisinopril for blood pressure control. Continue current cardiac medications otherwise. Antibiotics per primary service. The patient is stable from a cardiac standpoint. No further cardiac evaluation is indicated at this time. Thank you for this consult. We will continue to follow. Mona Mireles MD [facility]/MODL /[id number]
[2019-04-05] MEDS: ENOXAPARIN SOD INJ 40 MG/0.4 ML SYR SC SCH (17:47)
[2019-04-05] MEDS: ATORVASTATIN 40 MG TAB PO SCH (21:52)
--- NOTE | 2019-04-05 22:55 | NUR ---
pt refused picc line at this time nurse lila robbins
[2019-04-06] VITALS (9 sets, daily range): BP systolic 115–160; BP diastolic 65–89
--- NOTE | 2019-04-06 07:10 | NUR ---
RECEIVED BEDSIDE SHIFT REPORT FROM NIGHT NURSE. PATIENT RESTING AT THIS TIME WITH NO VISIBLE SIGNS OF DISTRESS OR DISCOMFORT NOTED. CALL LIGHT WITHIN REACH.
--- NOTE | 2019-04-06 07:24 | NUR ---
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 sx pending. Staph infection of foot. vanco trough. 04/03 sx pending; 04/04 MSSA infected DFU; 04/05 continue IV abx; continue LWC 04/06 IV abx; d/c planning; Paolo Martin MD, PhD.
[2019-04-06] MEDS: INSULIN REGULAR, HUMAN 100 UNIT/1 ML 3ML VIAL SQ SCH ×4 (09:15→21:24)
[2019-04-06] MEDS: FAMOTIDINE 20 MG TAB PO SCH ×2 (09:37→18:41)
[2019-04-06] MEDS: ASPIRIN 81 MG ENTERIC COATED PO SCH (09:37)
[2019-04-06] MEDS: INSULIN GLARGINE 100 UNITS/ML VIAL SQ SCH (09:37)
[2019-04-06] MEDS: CLOPIDOGREL BISULFATE 75 MG TAB PO SCH (09:38)
[2019-04-06] MEDS: LISINOPRIL 10 MG TAB PO SCH (09:39)
--- NOTE | 2019-04-06 13:15 | NUR ---
CALLED DR. HOLLIDAY REGARDING PICC LINE PLACEMENT. PATIENT AGREES TO PLACEMENT. ORDERED FOR PICC LINE PLACEMENT. ORDER READ BACK AND VERIFIED.
[2019-04-06] MEDS: HYDROCODONE/APAP 7.5MG-325MG 1 EA TAB PO PRN (14:09)
[2019-04-06] MEDS: MEROPENEM 1GM 100 ML IV SCH ×2 (14:30→21:24)
[2019-04-06] MEDS ORDERED: SODIUM CHLORIDE 0.9% 50ML 50 ML ONE (14:35)
[2019-04-06] MEDS: MORPHINE SULFATE INJ 4 MG/ML INJ 1ML IV PRN (17:44)
[2019-04-06] MEDS: ENOXAPARIN SOD INJ 40 MG/0.4 ML SYR SC SCH (18:41)
--- NOTE | 2019-04-06 18:53 | Diagnostic Imaging Report ---
EXAMINATION: CHEST XRAY LINE PLACEMENT INDICATION: ^PICC line placement ^[id number] ^[id number] COMPARISON: None FINDINGS: AP view TUBES and LINES: There is a PICC line in place with distal tip in SVC. LUNGS: Lungs are well inflated. There is no evidence of pneumonia or pulmonary edema. PLEURA: No pleural effusion or pneumothorax. HEART AND MEDIASTINUM: The cardiomediastinal silhouette is unremarkable. BONES AND SOFT TISSUES: No acute osseous lesion. Soft tissues are unremarkable. UPPER ABDOMEN: No free air under the diaphragm. IMPRESSION: No acute thoracic abnormality. Signed by: Gian Monahan MD on 04/06/2019 6:51 PM
--- NOTE | 2019-04-06 19:10 | NUR ---
BEDSIDE REPORT GIVEN TO MEHREEN DAMIAN. PATIENT RESTING IN BED. PICC LINE TO RIGHT UPPER ARM IN PLACE. CALL LIGHT WITHIN REACH.
--- NOTE | 2019-04-06 19:37 | Progress Note ---
DATE: 04/06/2019 Cardiology Progress Note SUBJECTIVE: The patient denies chest pain or shortness of breath. OBJECTIVE: VITAL SIGNS: Temperature 98.1 degrees, pulse 61, respiratory rate 19, blood pressure 144/70, and oxygen saturation 96% on room air. GENERAL: Awake, alert, in no acute distress. LUNGS: Clear to auscultation bilaterally. No wheezes or crackles. CARDIOVASCULAR: Normal rate. Regular rhythm. No murmur. Normal S1 and S2. ABDOMEN: Soft and nontender. EXTREMITIES: No edema. NEURO: Nonfocal exam. CARDIAC MEDICATIONS: Lisinopril 10 mg p.o. daily, Plavix 75 mg p.o. daily, aspirin 81 mg p.o. daily, and atorvastatin 40 mg p.o. at bedtime. LABORATORY DATA: None today IMPRESSION: 1. Peripheral arterial disease, status post GRADER GREEN MEAT of the left posterior tibial artery. 2. Diabetic ulcer of the left heel. 3. Hypertension. 4. Hyperlipidemia. RECOMMENDATIONS: Continue dual anti-platelet therapy. The patient's blood pressure remains poorly controlled. If remains elevated over the next few days, increase lisinopril. Continue current cardiac medications otherwise. Antibiotics per primary service. The patient is stable from a cardiac standpoint. No further cardiac evaluation is indicated at this time. Thank you for this consult. We will continue to follow. Mona Mireles MD [facility]/MODL /[id number]
[2019-04-06] MEDS: ATORVASTATIN 40 MG TAB PO SCH (21:24)
[2019-04-06] MEDS ORDERED: SODIUM CHLORIDE 0.9% 250ML 250 ML ONE (22:05)
--- NOTE | 2019-04-06 22:28 | NUR ---
PATIENT RESTING IN BED WITH FAMILY AT BEDSIDE. EDUCATED PATIENT ON HOW TO ADMINISTER INSULIN SQ. PATIENT SUCCESSFULLY ADMINISTERED HIS BEDTIME SLIDING SCALE INSULIN.
[2019-04-07] VITALS: BP 158/83
[2019-04-07] MEDS ORDERED: MORPHINE SULFATE INJ 4 MG/ML INJ 1ML IV PRN
[2019-04-07 04:00] VITALS: BP 134/62
[2019-04-07] MEDS: HYDROCODONE/APAP 7.5MG-325MG 1 EA TAB PO PRN ×3 (04:08→16:41)
[2019-04-07] MEDS: MEROPENEM 1GM 100 ML IV SCH ×2 (06:00→15:57)
[2019-04-07] MEDS: INSULIN REGULAR, HUMAN 100 UNIT/1 ML 3ML VIAL SQ SCH ×3 (07:46→16:40)
[2019-04-07 07:49] VITALS: BP 131/74
[2019-04-07 08:57] VITALS: BP 131/74
[2019-04-07] MEDS: CLOPIDOGREL BISULFATE 75 MG TAB PO SCH (09:23)
[2019-04-07] MEDS: LISINOPRIL 10 MG TAB PO SCH (09:23)
[2019-04-07] MEDS: ASPIRIN 81 MG ENTERIC COATED PO SCH (09:24)
[2019-04-07] MEDS: FAMOTIDINE 20 MG TAB PO SCH ×2 (09:24→16:40)
[2019-04-07] MEDS: INSULIN GLARGINE 100 UNITS/ML VIAL SQ SCH (09:24)
[2019-04-07 11:18] VITALS: BP 136/71
[2019-04-07] MEDS ORDERED: PLAVIX75 MG PO (12:07)
[2019-04-07] MEDS ORDERED: ASPIRIN EC81 MG PO (12:07)
[2019-04-07] MEDS ORDERED: FAMOTIDINE20 MG PO (12:07)
[2019-04-07] MEDS ORDERED: Atorvastatin PO (12:07)
[2019-04-07] MEDS ORDERED: LISINOPRIL10 MG PO (12:07)
[2019-04-07] MEDS ORDERED: ACETAMINOPHEN325 M1 PO (12:07)
--- NOTE | 2019-04-07 12:09 | NUR ---
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 sx pending. Staph infection of foot. vanco trough. 04/03 sx pending; 04/04 MSSA infected DFU; 04/05 continue IV abx; continue LWC 04/06 IV abx; d/c planning; 04/07 d/c home with Abx of ID choice; d/c home with IV abx f/u 2-4 days stable d/c>35mins Paolo Martin MD, PhD.
--- NOTE | 2019-04-07 12:16 | NUR ---
Per DR Roman Rose to get the order for IV antibiotics for discharge home.
--- NOTE | 2019-04-07 14:21 | NUR ---
Nutrition Screen Note RD Recommendation for Physician: -Continue current diet per MD. Plan of Care: RD following, monitoring for tolerance and adequacy. Education provided 03/31. Nutrition reason for involvement: Follow up Primary Diagnose(s): cellulitis of left foot, DM PMH: DM2, HTN, HLD Ht: 66 in Wt: 256 lb BMI: 41.3 kg/m2 IBW:[address] Assessment: 04/03: Follow up. Pt reports good appetite and po intake, noted 75-100% meal intake. Pt denies any N/V/C/D. Pt and family at bedside report good understanding of diet education provided last week, denied need for additional education or any questions at this time. Chart reviewed. Labs and meds noted. Pt pending discharge. Will continue to monitor. (03/31): 59 YOM admitted for cellulitis with PMH listed above. The pt was seen resting in bed with his at his bedside. The pt denied poor appetite, N/V/C/D/chewing or swallowing issues as well as any food allergies. Pt and were educated on the DM diet and weight management tips and given educational handout. They had no other questions or concerns. Chart reviewed. Labs and meds reviewed. A1c-10.6, POC GM: 211. Will continue to monitor. Current Diet: 1800 ADA diet Malnutrition Evaluation 03/31 The patient does not meet criteria for a specified degree of malnutrition at this time. Will re-evaluate at follow-up as appropriate. Diet Education Needs Assessment: Diet education indicated, pt accepted. Diet Adequacy: Meeting calorie needs, Meeting protein needs Diet education provided 03/31/19 Learner(s): pt and Barriers: none Cultural/Language Modifications:none Readiness: acceptance Method: discussion, handout Topics: DM Diet- food label, meal planning, food logging, foods recommended and not recommended, carb and protein together, hyperglycemia tips, checking sugars, grocery shopping, healthy cooking tips, etc. Understanding/Compliance: verbalized understanding, anticipate good compliance Nutrition Care Level: low Signed: Magy Clay RD, LD, [facility]
--- NOTE | 2019-04-07 14:48 | NUR ---
Dr Rose and Dr RUBY had rounds, awaiting antibiotic to set it up, patient up in bed, no distress noted
--- NOTE | 2019-04-07 15:58 | NUR ---
ORDER RECEIVED FOR HOME IV ABX, ERTAPENEM 1gm IV DAILY TILL 05/17/2019; WEEKLY CBC, CMP, ESR MET W THE PT AND FAMILY AT THE BEDSIDE. PROVIDED CHOICE. PT STATES HE WOULD LIKE AN IN NETWORK AGENCY. PT SIGNED CHOICE LETTER FOR [facility] @ [phone] / FAX: [phone]. REFERRAL WAS FAXED AND LIASON; NARCISO NOTIFIED PT WOULD LIKE TO DC HOME THIS PM.
[2019-04-07 16:02] VITALS: BP 140/68
--- NOTE | 2019-04-07 17:21 | NUR ---
HOME HEALTH DISCHARGE NOTE PATIENT ADDRESS WHERE SERVICE WILL BE RECEIVED: [address] [place] [id number] PATIENT CONTACT NUMBER: [phone] NAME OF HOME HEALTH COMPANY: [facility] TELEPHONE/FAX NUMBER OF COMPANY: OFF: [phone] / FAX: [phone] SERVICES TO RECEIVE: HOME IV ANTIBIOTICS / ERTAPANEM 1GM DAILY TILL 05/17/2019. WEEKLY LABS: CBC, CMP, ESR ANTICIPATED DATE SERVICES WILL BEGIN: 04/08/2019 NAME OF HOME HEALTH COMPANY: [facility] NURSING TELEPHONE/FAX NUMBER OF COMPANY: OFF: [phone] Please call the company above if you have not received a call to schedule a home visit within 24 hours of discharge.
[2019-04-07] MEDS ORDERED: ERTAPENEM 1GM/NS 100ML 100 ML IV ONE (17:45)
--- NOTE | 2019-04-07 18:44 | NUR ---
Patient discharged home, PICC line is patent and dressing intact, discharge instructions given , patient aware about his f/up with Doctors, per case management IV Antibiotics and home health been arranged already, patient not in any distress, denied any pain, transported via wheelchair to [facility]. family with him
--- NOTE | 2019-04-07 19:15 | NUR ---
Patient was discharged home via private vehicle. Pt went home with family and was given copy of discharge papers. Pt left hospital in stable condition.
--- NOTE | 2019-04-18 17:04 | Operative Report ---
DATE OF PROCEDURE: 03/31/2019 SURGEON: Tien Francis MD INDICATION FOR PROCEDURES: Acute limb ischemia. PREPROCEDURE ASSESSMENT: The risks, benefits, and alternative to treatments were explained to the patient prior to the procedure. The patient was deemed to be an appropriate candidate for moderate sedation. Informed consent was obtained and documented in the medical record. MEDICATIONS: Please see nursing notes for medications administered throughout the procedure. PROCEDURES PERFORMED: 1. Abdominal aortography. 2. Bilateral peripheral angiography. 3. Third-order catheter placement. 4. Atherectomy and FISHERY BIOLOGIST with left posterior tibial artery. 5. Vascular closure device. 6. Moderate sedation, supervision time 50 minutes. PROCEDURE DETAILS: The patient was brought to the cardiac catheterization laboratory in a fasting state. Right groin was prepped and draped in a sterile fashion. A 6-Liberian sheath was inserted in the right common femoral artery using modified Seldinger technique. 5-Liberian Omni Flush catheter was inserted in the abdominal aorta and abdominal aortogram was performed. Fairfield Advantage wire was advanced through the Omni Flush catheter into the contralateral iliac artery. Omni Flush catheter was advanced into the left common femoral artery and multiple angiograms of the left lower extremity were taken, this demonstrated no significant disease in the iliac specifically or popliteal system, however, 80% stenosis of the distal posterior tibial and 50% stenosis of the proximal anterior tibial arteries with 3-vessel runoff to the foot. Given the presence of heel ulceration, we decided to proceed with intervention to the left posterior tibial artery and a Fairfield Advantage wire was reinserted through the Omni Flush catheter and catheter was removed. A short 6-Liberian sheath was exchanged for a destination sheath over the Fairfield Advantage wire. Fairfield Advantage was then removed and a Viper wire was advanced into the posterior tibial artery pass the lesion. Arthrectomy of the posterior tibial artery was performed using 1.25 solid but at low and medium setting, followed by balloon angioplasty with 3 x 40 mm Ultraverse at 7 atmospheres for 3 minutes. This resulted in excellent angiographic result with brisk flow to the heel. The wire was removed and the destination sheath was exchanged for a short 6-Liberian. Runoff angiography of right lower extremity was performed through the short sheath. Access site was closed using ProGlide vascular closure device. The patient tolerated the procedure well. There were no immediate complications. Dual antiplatelet therapy with aspirin and Plavix was administered at the end of the procedure. SIGNIFICANT FINDINGS: Peripheral angiography demonstrated 80% stenosis of the left posterior tibial artery and 50% stenosis of the left anterior tibial artery proximally, otherwise no significant peripheral arterial disease of left lower extremity. Right lower extremity demonstrated mild plaquing in the tibial arteries, otherwise no obstructive peripheral arterial disease. GRAFTS AND IMPLANTS: ProGlide vascular closure device. SPECIMEN REMOVED: None. ESTIMATED BLOOD LOSS: 50 mL. COMPLICATIONS: None. FINAL RECOMMENDATIONS: 1. Continue aspirin 81 mg daily for life and Plavix 75 mg daily for 3 months. 2. Continue optimal medical therapy and risk factor control. 3. Follow up in the clinic 2 weeks post procedure. MD ALONSO Del Rio/LEA /[id number]
== END 2019-04-07 19:30 | disposition home health service (06) | DRG 629 ==
LOC: ER 16:03 → ERHOLD 18:27 → IMCU 21:43 → OBSVTOIN 03-31 06:53 → MED/SURG3 04-05 19:28
PROVIDERS: ADMIT Internal Medicine; ATTEND Internal Medicine
PROC: 047R3ZZ Dilation of Right Posterior Tibial Artery, Percutaneous Approach (ICD-10-PCS; 2019-03-31)
PROC: 04CR3ZZ Extirpation of Matter from Right Posterior Tibial Artery, Percutaneous Approach (ICD-10-PCS; 2019-03-31)
PROC: B41D1ZZ Fluoroscopy of Aorta and Bilateral Lower Extremity Arteries using Low Osmolar Contrast (ICD-10-PCS; 2019-03-31)
PROC: 0QBM0ZX Excision of Left Tarsal, Open Approach, Diagnostic (ICD-10-PCS; 2019-04-03)
PROC: 0J9R0ZZ Drainage of Left Foot Subcutaneous Tissue and Fascia, Open Approach (ICD-10-PCS; principal; 2019-04-03 13:04)
DX: E11.69 Type 2 diabetes mellitus with other specified complication (principal); L02.612 Cutaneous abscess of left foot; Z68.41 Body mass index [BMI] 40.0-44.9, adult; L03.116 Cellulitis of left lower limb; L97.428 Non-pressure chronic ulcer of left heel and midfoot with other specified severity; M86.8X7 Other osteomyelitis, ankle and foot; E11.628 Type 2 diabetes mellitus with other skin complications; I10 Essential (primary) hypertension; E66.01 Morbid (severe) obesity due to excess calories; B95.61 Methicillin susceptible Staphylococcus aureus infection as the cause of diseases classified elsewhere; E11.65 Type 2 diabetes mellitus with hyperglycemia; E11.42 Type 2 diabetes mellitus with diabetic polyneuropathy; E11.621 Type 2 diabetes mellitus with foot ulcer; Z87.891 Personal history of nicotine dependence; E11.51 Type 2 diabetes mellitus with diabetic peripheral angiopathy without gangrene; E78.5 Hyperlipidemia, unspecified
CPT/HCPCS: 36247; 36415; 36569; 37229; 75625; 75716; 80048; 80053; 80061; 80202; 82948; 83036; 85025; 85610; 85730; 87040; 87071; 87075; 87116; 87186; 87205; 87206; 88305; 88311; 93926; 96360; 96372; 97139; 99152; 99153; 99283; C1724; C1725; C1760; C1769; C1887; G0378; J1170; J1644; J1650; J1815; J1817; J2001; J2250; J2270; J2405; J2543; J3010; J3370; J7030; J7050; Q9967

== ENCOUNTER → 2020-11-27 | Day surgery (SDC) | payer BC ==
[~2020-11-27] MED LIST: ACETAMINOPHEN325 M1 PO; ASPIRIN EC81 MG PO; Atorvastatin PO; FAMOTIDINE20 MG PO; FENTANYL CITRATE/PF 100MCG/2 ML INJ ONE; GLIMEPIRIDE2 MG PO; GLUCAGON FOR INJ 1 MG VIAL ONE; HYOSCYAMINE SULFATE 0.5 MG/ML INJ ONE; LIDOCAINE HCL 2% LOCAL INJ 5 ML SDV VIAL INJ ONE; LISINOPRIL10 MG PO; METFORMIN HCL500 MG PO; MIDAZOLAM HCL 2 MG/2 ML VIAL ONE; PHENTERMINE H37.5 MG PO; PLAVIX75 MG PO; PROPOFOL IV EMULSION 10 MG/ML 20 ML VIAL ONE; SIMETHICONE 40 MG/0.6 ML BTL ONE
[2020-11-27 09:05] VITALS: BP 127/79
== END | disposition home or self-care (01) ==
LOC: OR 06:09
PROVIDERS: ATTEND Internal Medicine Gastroenterology
DX: Z12.11 Encounter for screening for malignant neoplasm of colon (principal); D12.0 Benign neoplasm of cecum; D12.5 Benign neoplasm of sigmoid colon; K63.89 Other specified diseases of intestine; K57.30 Diverticulosis of large intestine without perforation or abscess without bleeding; K64.8 Other hemorrhoids; E11.9 Type 2 diabetes mellitus without complications; E78.5 Hyperlipidemia, unspecified; E66.9 Obesity, unspecified; I45.10 Unspecified right bundle-branch block; Z01.812 Encounter for preprocedural laboratory examination; Z20.822 Contact with and (suspected) exposure to COVID-19; Z79.84 Long term (current) use of oral hypoglycemic drugs
CPT/HCPCS: 36415; 45380; 45385; 82948; J1610; J1980; J2001; J2250; J2704; J3010; U0002

== ENCOUNTER 2021-09-10 10:18 | Emergency (ER) | payer BC, OTHER ==
[~2021-09-10] VITALS: Ht 167.6 cm; Wt 112.0 kg
[~2021-09-10 10:18] MED LIST changes: -FENTANYL CITRATE/PF 100MCG/2 ML INJ ONE; -GLUCAGON FOR INJ 1 MG VIAL ONE; -HYOSCYAMINE SULFATE 0.5 MG/ML INJ ONE; -LIDOCAINE HCL 2% LOCAL INJ 5 ML SDV VIAL INJ ONE; -MIDAZOLAM HCL 2 MG/2 ML VIAL ONE; -PROPOFOL IV EMULSION 10 MG/ML 20 ML VIAL ONE; -SIMETHICONE 40 MG/0.6 ML BTL ONE
[2021-09-10] MEDS ORDERED: LACTATED RINGER'S 1,000 ML INJ ONE (11:00)
[2021-09-10] MEDS ORDERED: TETANUS/DIPHTHERIA TOX ADULT 0.5 ML SYR IM ONE (11:00)
[2021-09-10 11:23] LABS: BASOPHILS # (AUTO) 0.1 (0.0-0.1); BASOPHILS % 0.6 % (0.0-1.0); EOSINOPHILS # (AUTO) 0.4 (0.0-0.4); EOSINOPHILS % 4.1 % (0.0-6.0); HEMATOCRIT 42.7 % (38.2-49.6); LYMPHOCYTES # (AUTO) 1.8 (1.0-3.2); MEAN CORPUSCULAR HEMOGLOBIN 31.1 pg (28-32); MEAN CORPUSCULAR HGB CONC 35.1 g/dL (31-35); MEAN CORPUSCULAR VOLUME 88.6 fL (81-99); MONOCYTES # (AUTO) 0.6 (0.2-0.8); NEUTROPHILS # (AUTO) 5.7 (2.1-6.9); NEUTROPHILS % 66.8 % (38.7-80.0); PLATELET COUNT 299 x10e3/uL (140-360); RED BLOOD COUNT 4.82 x10e6/uL (4.3-5.7); RED CELL DISTRIBUTION WIDTH 11.3 % (11.7-14.4)
[2021-09-10 11:41] LABS: CREATINE KINASE 156 IU/L (30-200)
[2021-09-10 11:46] LABS: ALBUMIN 3.9 g/dL (3.5-5.0); ALBUMIN/GLOBULIN RATIO 1.1 (0.8-2.0); ANION GAP 14.9 mmol/L (8-16); CALCIUM 9.3 mg/dL (8.4-10.2); CREATININE, SERUM 1.18 mg/dL (0.72-1.25); POTASSIUM 3.9 mmol/L (3.5-5.1)
[2021-09-10] MEDS ORDERED: CEPHALEXIN500 MG PO (12:43)
[2021-09-10 13:00] VITALS: BP 138/81
== END 2021-09-10 13:03 | disposition home or self-care (01) ==
LOC: ER 10:23
DX: S01.01XA Laceration without foreign body of scalp, initial encounter (principal); M25.521 Pain in right elbow; W01.0XXA Fall on same level from slipping, tripping and stumbling without subsequent striking against object, initial encounter; Y93.01 Activity, walking, marching and hiking; Y92.89 Other specified places as the place of occurrence of the external cause; E11.65 Type 2 diabetes mellitus with hyperglycemia
CPT/HCPCS: 12001; 36415; 70450; 72125; 73080; 80053; 82550; 82948; 84484; 85025; 90471; 90714; 93005; 99284; J7121

== ENCOUNTER 2021-09-20 16:12 | Emergency (ER) | payer BC ==
[~2021-09-20] VITALS: Ht 167.6 cm; Wt 112.0 kg
[~2021-09-20 16:12] MED LIST changes: +CEPHALEXIN500 MG PO
== END 2021-09-20 19:47 | disposition home or self-care (01) ==
LOC: ER 16:22
DX: Z48.02 Encounter for removal of sutures (principal); E11.9 Type 2 diabetes mellitus without complications
CPT/HCPCS: 99282